=== PATIENT | female | born 2000 | race Caucasian/White ===

== ENCOUNTER 2024-03-16 18:39 | Inpatient (IN) ==
[2024-03-16] MEDS ORDERED: Lidocaine 1% VIAL 10 MG/ML 30 ML VIAL INJ PRN (19:18)
[2024-03-16] MEDS: Lactated Ringers 1000 ml BAG 1,000 ML IV ONE (20:05)
[2024-03-16] MEDS: Methylergonovine 0.2 mg AMPULE 1 ml AMP ONE (20:32)
[2024-03-16 20:51] LABS: Hematocrit 31.8 % (35-45); Hemoglobin 10.1 g/dL (11.5-14.3); Mean Corpuscular Hemoglobin 22.9 pg (27-33); Mean Corpuscular Hgb Conc 31.7 g/dL (31-36); Mean Corpuscular Volume 72.2 fL (80-97); Mean Platelet Volume 8.8 fL (7.5-11.2); Platelet Count 344 10^3/uL (150-450); Red Blood Count 4.41 10^6/uL (3.63-4.92); Red Cell Distribution Width 15.2 % (12-17); White Blood Count 18.8 10^3/uL (3.8-11.8)
[2024-03-16 21:56] LABS: ABS Lymphocytes 3.1 10^3/uL (1.0-4.8); ABS Monocytes 1.2 10^3/uL (0.0-0.9); ABS Neutrophils 14.5 10^3/uL (1.5-7.6); ABS Nucleated RBC 0.01 10^3/ul; Eosinophil % 0.2 %; Lymphocyte % 16.3 %
[2024-03-16] MEDS ORDERED: Lactated Ringers 1000 ml BAG 1,000 ML IV SCH (22:00)
[2024-03-16] MEDS: Dibucaine 1% OINT 28.35 GM TUBE PR PRN (22:30)
[2024-03-16] MEDS: Methylergonovine 0.2 mg AMPULE 1 ml AMP IM ONE (23:20)
[2024-03-16] MEDS: Oxytocin in LR 20,000 MILLI.UNIT/1,000 ML BAG IV ONE (23:21)
[2024-03-17 07:14] LABS: ABS Basophils 0.1 10^3/uL (0.0-0.1); ABS Monocytes 1.2 10^3/uL (0.0-0.9); ABS Neutrophils 12.7 10^3/uL (1.5-7.6); ABS Nucleated RBC 0.01 10^3/ul; Eosinophil % 0.1 %; Hemoglobin 7.8 g/dL (11.5-14.3); Lymphocyte % 12.7 %; Mean Corpuscular Hgb Conc 32.3 g/dL (31-36); Mean Corpuscular Volume 71.3 fL (80-97); Mean Platelet Volume 8.6 fL (7.5-11.2); Platelet Count 263 10^3/uL (150-450); Red Blood Count 3.37 10^6/uL (3.63-4.92); Red Cell Distribution Width 14.7 % (12-17)
[2024-03-17] MEDS: Oxytocin in LR 20,000 MILLI.UNIT/1,000 ML BAG IV SCH (07:24)
[2024-03-17] MEDS: Iron Sucrose 200 MG in NS 0.9% 100 ml BAG 100 ML IVPB ONE (11:34)
[2024-03-17] MEDS: Witch Hazel PAD JAR TOPICAL PRN (17:51)
[2024-03-17 20:19] VITALS: BP 100/60
== END 2024-03-17 18:30 | disposition home or self-care (01) | DRG 807 ==
LOC: MCHOBOUT 18:39 → MCHOB 19:17
PROVIDERS: ADMIT Midwife; ATTEND Midwife